=== PATIENT | female | born 1960 | race Caucasian/White ===

== ENCOUNTER 2024-10-19 09:32 | Emergency (ER) | payer OTHER ==
[~2024-10-19] VITALS: Ht 162.6 cm; Wt 60.3 kg
--- NOTE | 2024-10-19 10:28 | ED.PDOC ---
General HPI Comments 64-year-old female with a history of diabetes, liver cirrhosis and UTIs brought in by self complaining of left low back/flank pain for the past several months intermittently. Patient states she was recently seen at urgent care and on 10/06/2024 was treated with nitrofurantoin, which she finished. She had persistent symptoms, so revisited urgent care on 10/16, was told she still had the UTI, so was prescribed cephalexin, which she has been taking without improvement of her symptoms. She also reports nausea and dry heaving which has been relieved with Zofran. Today she states her blood glucose was in the 300s, which is not normal for her. She also reports decreased urine output and diffi culty with urination, but denies fever, hematuria or worsening edema. Chief Complaint: Back Pain Time Seen by MD: 10:10 Reviewed notes: Nurses Notes, Medications, Allergies Allergies: Coded Allergies: NO KNOWN ALLERGIES (Unverified , 10/19/24) Home Meds Active Scripts Levofloxacin Hemihydrate (LEVAQUIN 500 MG) 500 Mg Tab, 500 MG PO DAILY for 10 Days, #10 TAB Prov:RICK LOMAX MD 10/19/24 Information Source: Patient Mode of Arrival: Ambulatory Severity: Moderate Timing: Weeks Duration: Since onset Prehospital treatment: None Onset: Spontaneous Symptoms: None History of: UTI Location: (L)Flank (more towards the back) Modifying factors: None associated signs and symptoms: Back Pain Past Medical History PAST MEDICAL HISTORY: DM Past Medical History (Other): Cirrhosis Surgical History: Tonsillectomy Surgical History (Other): Laparoscopic surgery 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 History Family History Family History: Reviewed,noncontributory to illness, Unknown Social History Smoker: Non-Smoker Alcohol: Sober Drugs: Denies Drug Use Lives In: Home Constitutional: denies: chills, diaphoresis, fatigue, fever, malaise, sweats, weakness, others EENTM: denies: blurred vision, double vision, ear bleeding, ear discharge, ear drainage, ear pain, ear ringing, eye pain, eye redness, hearing loss, mouth pain, mouth swelling, nasal discharge, nose bleeding, nose congestion, nose pain, photophobia, tearing, throat pain, throat swelling, voice changes, others Respiratory: denies: cough, hemoptysis, orthopnea, SOB at rest, shortness of breath, SOB with excertion, stridor, wheezing, others Cardiovascular: denies: chest pain, dizzy spells, diaphoresis, Dyspnea on exertion, edema, irregular heart beat, left arm pain, lightheadedness, palpitations, PND, syncope, others Gastrointestinal: denies: abdomen distended, abdominal pain, blood streaked bowels, constipated, diarrhea, dysphagia, difficulty swallowing, hematemesis, melena, nausea, poor appetite, poor fluid intake, rectal bleeding, rectal pain, vomiting, others Genitourinary: reports: others (Currently has a UTI); denies: abnormal vagina bleeding, burning, dyspareunia, dysuria, flank pain, frequency, hematuria, incontinence, pain, , vagina discharge, urgency Neurological: denies: dizziness, fainting, headache, left sided numbness, left sided weakness, numbness, paresthesia, pre-existing deficit, right sided numbness, right sided weakness, seizure, speech problems, tingling, tremors, weakness, others Musculoskeletal: reports: back pain; denies: gout, joint pain, joint swelling, muscle pain, muscle stiffness, neck pain, others Integumetry: denies: bruises, change in color, change in hair/nails, dryness, laceration, lesions, lumps, rash, wounds, others Allergic/Immunocompromised: denies: Difficulty Healing, Frequent Infections, Hives, Itching, others Hematologic/Lymphatic: denies: anemia, blood clots, easy bleeding, easy bruising, swollen glands, others Endocrine: denies: excessive hunger, excessive sweating, excessive thirst, excessive urination, flushing, intolerance to cold, intolerance to heat, unexplained weight gain, unexplained weight loss, others Psychiatric: denies: anxiety, bipolar disorder, depression, hopeless, panic disorder, schizophrenia, sleepless, suicidal, others All Other Systems: Reviewed and Negative Physical Exam General Appearance: No Apparent Distress HEENT: Other (Unremarkable) Neck: Full Range of Motion, Normal Inspection Respiratory: Lungs Clear, No Accessory Muscle Use, No Respiratory Distress, Normal Breath Sounds Cardiovascular: No Edema, No JVD, Regular Rate/Rhythm Breast Exam: Deferred Gastrointestinal: Non Tender, Soft, Other (Localizes pain to the left low back and flank areas. No change in pain with palpation of these areas. No CVA tenderness.) Genitalia: Deferred Pelvic: Deferred Rectal: Deferred Extremities: Normal inspection, Normal range of motion, Non-tender, No pedal edema Neurologic: Alert (Oriented x4), Normal Affect, Normal Mood, Other (Ambulatory without difficulty, no gross focal deficit) Cerebellar Function: NOT DONE Reflexes: NOT DONE Skin: Dry, Normal Color, Warm Lymphatic: NOT DONE Was a procedure done? Was a procedure done?: No Differential Diagnosis Kidney stone (Female): Bowel obstruction, Pyelonephritis, Renal failure, Urolithiasis Kidney stone (Male): Renal infarction Penile/Scrotal: N/A Urinary Problem (Male): N/A Urinary Problem (Female): Urinary retention, Other (Abscess, mass lesion, musculoskeletal pain, neuropathic pain, among others) X-Ray, Labs, Meds, VS Vital Signs Date Time Temp Pulse Resp B/P (MAP) Pulse Ox O2 Delivery O2 Flow Rate FiO2 10/19/24 10:54 75 18 100 Room Air* 0 21 10/19/24 10:54 98.1 75 18 130/71 (90) 100 98.1 10/19/24 09:52 99.8 100 16 147/67 (93) 98 Lab Test 10/19/24 11:51 10/19/24 10:34 10/19/24 09:50 Range/Units POC Glucose 304 H 70-106 mg/dl White Blood Count 8.7 4.4-10.8 10^3/uL Red Blood Count 4.47 4.0-5.20 10^6/uL Hemoglobin 10.5 L 12.2-16.2 g/dL Hematocrit 33.0 L 36.0-46.0 % Mean Corpuscular Volume 73.8 L 80.0-100.0 fL Mean Corpuscular Hemoglobin 23.5 L 28.0-32.0 pg Mean Corpuscular Hemoglobin Concent 31.8 L 32.0-36.0 g/dL Red Cell Distribution Width 17.2 H 11.8-14.3 % Platelet Count 383 140-450 10^3/uL Mean Platelet Volume 8.4 6.9-10.8 fL Neutrophils (%) (Auto) 80.3 H 37.0-80.0 % Lymphocytes (%) (Auto) 10.2 10.0-50.0 % Monocytes (%) (Auto) 7.8 0.0-12.0 % Eosinophils (%) (Auto) 0.6 0.0-7.0 % Basophils (%) (Auto) 1.1 0.0-2.0 % Neutrophils # (Auto) 7.0 1.6-8.6 10 ^3/uL Lymphocytes # (Auto) 0.9 0.4-5.4 10 ^3/uL Monocytes # (Auto) 0.7 0-1.3 10 ^3/uL Eosinophils # (Auto) 0.1 0-0.8 10 ^3/uL Basophils # (Auto) 0.1 0-0.2 10 ^3/uL Nucleated Red Blood Cells 0.1 % Sodium Level 130 L 136-145 mmol/L Potassium Level 3.9 3.5-5.1 mmol/L Chloride Level 95 L 98-107 mmol/L Carbon Dioxide Level 27 20-31 mmol/L Anion Gap 8 5-15 Blood Urea Nitrogen 13 9-23 mg/dL Creatinine 1.53 H 0.550-1.02 mg/dL Glomerular Filtration Rate Calc 38 >90 mL/min BUN/Creatinine Ratio 8.5 L 10.0-20.0 Serum Glucose 315 H 74-106 mg/dL Lactic Acid Level 1.3 0.4-2.0 mmol/L Calcium Level 9.8 8.7-10.4 mg/dL Urine Color Light-yellow Yellow Urine Clarity Clear Clear Urine pH 5.5 5.0-9.0 Urine Specific [place] 1.009 1.001-1.035 Urine Protein Negative Negative Urine Ketones Negative Negative Urine Blood Negative Negative /uL Urine Nitrite Negative Negative Urine Bilirubin Negative Negative Urine Urobilinogen Normal Negative mg/dL Urine Leukocyte Esterase Negative Negative /uL Urine RBC <1 0 - 4 /hpf Urine WBC 1 0 - 5 /hpf Urine Squamous Epithelial Cells Few <5 /hpf Urine Bacteria None seen None Seen /hpf Urine Glucose 4+ H Normal mg/dL Current Medications Medications (Trade) Dose Ordered Sig/Teresita Route Start Time Stop Time Status Last Admin Sodium Chloride 1,000 ml @ 1,000 mls/hr Q1H ONCE IV 10/19/24 10:30 10/19/24 11:29 DC 10/19/24 10:50 Levofloxacin/ Dextrose 100 ml @ 100 mls/hr ONCE ONCE IV 10/19/24 10:30 10/19/24 11:29 DC 10/19/24 10:50 Insulin Human Regular (InsuLIN R) 4 units ONCE ONCE IV 10/19/24 11:45 10/19/24 11:46 DC 10/19/24 11:56 PROCEDURE(s): ABPL - CT AB PEL WO CON-NO ORAL OR IV REASON: L flank/low back pain, resistant uti ORDER NUMBER(s): [id number], ACCESSION NUMBER(s): [id number] CLINICAL INFORMATION: 64 years old, Female; left flank/low back pain, resistant urinary tract infection. TECHNIQUE: Axial CT images of the abdomen and pelvis were obtained without IV contrast. Coronal and sagittal reformatted images were obtained, reviewed, and stored. Evaluation of the parenchymal organs is limited without IV contrast. Evaluation of the bowel and mesentery is limited without oral contrast. All CT scans at this medical facility are performed using dose modulation techniques as appropriate to a performed exam including the following: Automated exposure control was utilized; adjustment of the MA and/or KV according to patient size; and use of iterative reconstruction technique. CTDIvol = 7.75 mGy DLP = 425.48 mGy-cm COMPARISON: None FINDINGS: Lung bases: Lung bases are clear. Liver: Grossly unremarkable in its noncontrast enhanced appearance. No abnormal density or focal lesion identified. Biliary: Multiple calcified gallstones in the gallbladder. Spleen: Unremarkable. Pancreas: Prominent pancreatic calcifications, likely sequelae of chronic pancreatitis. Adrenal glands: Unremarkable. No mass. Kidneys: No hydronephrosis. Punctate nonobstructing calculus in the lower pole of the left kidney. No obstructing calculi. Aorta/Vascular: Dense atherosclerotic calcification. No abdominal aortic aneurysm. Retroperitoneum: No mass or lymphadenopathy. Bowel/mesentery: No small bowel obstruction. No free air or free fluid. Appendix is visualized and appears unremarkable. Moderate stool in the colon. Pelvic organs: Uterus appears to be surgically absent. Bladder: Unremarkable. No mass. Abdominal wall: No mass or hernia. Bones: No acute fracture or suspicious intraosseous lesion. IMPRESSION: 1. No hydronephrosis. Punctate nonobstructing calculus in the lower pole of the left kidney. No obstructing calculi. 2. Cholelithiasis. 3. Sequelae of chronic pancreatitis as described above. 4. Moderate stool in the colon. 5. Additional nonacute findings as detailed above. X-Ray, Labs, Meds, VS Comment 64-year-old female with a history of diabetes, liver cirrhosis and current UTI complaining of persistent left flank pain and UTI symptoms despite taking nitrofurantoin and Keflex Remarkable for temperature 99.8, BP 164/[address] abdomen and pelvis IMPRESSION: 1. No hydronephrosis. Punctate nonobstructing calculus in the lower pole of the left kidney. No obstructing calculi. 2. Cholelithiasis. 3. Sequelae of chronic pancreatitis as described above. 4. Moderate stool in the colon. 5. Additional nonacute findings as detailed above. CBC, basic metabolic panel remarkable for hemoglobin 10.5, hematocrit 33, 80.3% neutrophils, sodium 130, chloride 95, creatinine 1.53, glucose 315 UA unremarkable except for 4+ glucose Patient treated with the following in the ED: 1 L 0.9 normal saline IV bolus, Levaquin 500 mg IV, regular insulin 4 units IV On re-evaluation, patient resting comfortably with stable vitals. Patient decli doreen pain medication, stating she was comfortable after taking naproxen at home. Case was discussed with Dr. Wilcox, who reviewed the patient's outpatient history and felt the patient could be managed as an outpatient. He felt that she has been adequately treated for her UTI, and recommended no additional antibiotics. He felt the patient may have pain due to degenerative disc disease, so will refer her to pain management. He also recommended Flomax for her urinary discomfort. Patient advised regarding workup findings, my impression, treatment plan and follow-up recommendations. She expressed understanding and agreed. Time of 1ST Reevaluation: 10:40 Reevaluation 1ST: Unchanged Time of 2ND Reevaluation: 13:33 Patient Education/Counseling: Diagnosis, Treatment, Prognosis Family Education/Counseling: No Family Present Additional Information - The following tests were ordered, and results were reviewed by me: Labs, CT, PHA - I reviewed and agreed with the following test results read by other provider: CT - I discussed treatments and results with medical personnel and: (consultants, family) Departure 1 Departure Time of Disposition: 11:44 Impression: Primary Impression: Nephrolithiasis Additional Impressions: Electrolyte imbalance Hyperglycemia Disposition: HOME / SELF CARE / HOMELESS Condition: Stable Additional Instructions: Your blood tests showed low sodium and chloride, high blood sugar and abnormal kidney function. Your urine test showed glucose, but was not consistent with an infection. Your CT results are below. 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 Continue Keflex (cephalexin) until finished. Continue naproxen as needed for pain. Continue ondansetron as needed for nausea/vomiting. [place] [id number] Ph: [phone] DIAGNOSTIC IMAGING Diagnostic Imaging Report : [id number] Signed PATIENT: TULIO ARELLANO ACCT: [id number] UNIT: [id number] : 1960 LOC: ER ROOM / BED: / AGE / SEX: 64 / F ADM STATUS: REG ER SERVICE 1023 ORDERING PHYSICIAN: RICK LOMAX MD PROCEDURE(s): ABPL - CT AB PEL WO CON-NO ORAL OR IV REASON: L flank/low back pain, resistant uti ORDER NUMBER(s): [id number], ACCESSION NUMBER(s): [id number] CLINICAL INFORMATION: 64 years old, Female; left flank/low back pain, resistant urinary tract infection. TECHNIQUE: Axial CT images of the abdomen and pelvis were obtained without IV contrast. Coronal and sagittal reformatted images were obtained, reviewed, and stored. Evaluation of the parenchymal organs is limited without IV contrast. Evaluation of the bowel and mesentery is limited without oral contrast. All CT scans at this medical facility are performed using dose modulation techniques as appropriate to a performed exam including the following: Automated exposure control was utilized; adjustment of the MA and/or KV according to patient size; and use of iterative reconstruction technique. CTDIvol = 7.75 mGy DLP = 425.48 mGy-cm COMPARISON: None FINDINGS: Lung bases: Lung bases are clear. Liver: Grossly unremarkable in its noncontrast enhanced appearance. No abnormal density or focal lesion identified. Biliary: Multiple calcified gallstones in the gallbladder. Spleen: Unremarkable. Pancreas: Prominent pancreatic calcifications, likely sequelae of chronic pancreatitis. Adrenal glands: Unremarkable. No mass. Kidneys: No hydronephrosis. Punctate nonobstructing calculus in the lower pole of the left kidney. No obstructing calculi. Aorta/Vascular: Dense atherosclerotic calcification. No abdominal aortic aneurysm. Retroperitoneum: No mass or lymphadenopathy. Bowel/mesentery: No small bowel obstruction. No free air or free fluid. Appendix is visualized and appears unremarkable. Moderate stool in the colon. Pelvic organs: Uterus appears to be surgically absent. Bladder: Unremarkable. No mass. Abdominal wall: No mass or hernia. Bones: No acute fracture or suspicious intraosseous lesion. IMPRESSION: 1. No hydronephrosis. Punctate nonobstructing calculus in the lower pole of the left kidney. No obstructing calculi. 2. Cholelithiasis. 3. Sequelae of chronic pancreatitis as described above. 4. Moderate stool in the colon. 5. Additional nonacute findings as detailed above. ATED BY: MANJIT NAZARIO DO DICTATED DATE/TIME: 10/19/24 1135 e-Prescriptions Tamsulosin Hcl (Flomax) 0.4 Mg Cap 1 CAP PO DAILY, #30 CAP 11 Refills Prov: RICK LOMAX MD 10/19/24 Discharged With: Self Critical Care Note Critical Care Time?: No Stability Stability form required: No Heart Score Heart Score: Heart Score Response (Comments) Value History N/A 0 EKG N/A 0 Age N/A 0 Risk Factors N/A 0 Troponin N/A 0 Total 0 I personally scribed for RICK LOMAX MD ([email or web address]) on 10/19/24 at 10:28. Electronically submitted by Rishi Bourgeois ([email or web address]). RICK LOMAX MD Oct 19, 2024 10:28
[2024-10-19 10:42] LABS: Basophils # (auto) 0.1 10 ^3/uL (0-0.2); Basophils % (auto) 1.1 % (0.0-2.0); Eosinophils # (auto) 0.1 10 ^3/uL (0-0.8); Eosinophils % (auto) 0.6 % (0.0-7.0); Hemoglobin 10.5 g/dL (12.2-16.2); Lymphocytes # (auto) 0.9 10 ^3/uL (0.4-5.4); Lymphocytes % (auto) 10.2 % (10.0-50.0); Mean Corpuscular Hemoglobin 23.5 pg (28.0-32.0); Mean Corpuscular Hgb Conc. 31.8 g/dL (32.0-36.0); Mean Corpuscular Volume 73.8 fL (80.0-100.0); Monocytes # (auto) 0.7 10 ^3/uL (0-1.3); Monocytes % (auto) 7.8 % (0.0-12.0); Neutrophils % (auto) 80.3 % (37.0-80.0); Nucleated Red Blood Cells % 0.1 %; Platelet Count (auto) 383 10^3/uL (140-450); Red Blood Cells 4.47 10^6/uL (4.0-5.20); Red Cell Distribution Width 17.2 % (11.8-14.3); White Blood Cell 8.7 10^3/uL (4.4-10.8)
[2024-10-19 10:48] LABS: Urine Bacteria None Seen /hpf (None Seen)
[2024-10-19] MEDS: levoFLOXacin 500MG 100 ML IV ONE (10:50)
[2024-10-19] MEDS: SODIUM CHLORIDE 0.9% 1,000 ML IV ONE (10:50)
[2024-10-19 10:52] LABS: Potassium 3.9 mmol/L (3.5-5.1)
[2024-10-19 10:53] LABS: Anion Gap 8 (5-15); Calcium 9.8 mg/dL (8.7-10.4); Carbon Dioxide 27 mmol/L (20-31); Chloride 95 mmol/L (98-107); Sodium 130 mmol/L (136-145)
[2024-10-19 10:54] VITALS: PULSE 75; RESP 18; O2SAT 100
[2024-10-19 10:58] LABS: BUN/Creatinine Ratio 8.5 (10.0-20.0); Blood Urea Nitrogen 13 mg/dL (9-23)
[2024-10-19 11:02] LABS: Urine Blood Negative /uL (Negative); Urine Clarity Clear (Clear); Urine Color Light-Yellow (Yellow); Urine Protein, UAD Negative (Negative); Urine Specific Gravity 1.009 (1.001-1.035); Urine Squamous Epithelial Cell FEW /hpf (<5); Urine Urobilinogen Normal (Negative); Urine WBC 1 /hpf (0 - 5); Urine pH 5.5 (5.0-9.0)
[2024-10-19 11:06] LABS: Glucose 315 mg/dL (74-106)
[2024-10-19] MEDS ORDERED: LEVO500T91 PO (11:34)
--- NOTE | 2024-10-19 11:37 | DVH ---
CLINICAL INFORMATION: 64 years old, Female; left flank/low back pain, resistant urinary tract infec tion. TECHNIQUE: Axial CT images of the abdomen and pelvis were obtained without IV contrast. Coronal and sagittal reformatted images were obtained, reviewed, and stored. Evaluation of the parenchymal organs is limited without IV contrast. Evaluation of the bowel and mesentery is limited without oral contra st. All CT scans at this medical facility are performed using dose modulation techniques as appropria te to a performed exam including the following: Automated exposure control was utilized; adjustment o f the MA and/or KV according to patient size; and use of iterative reconstruction technique. CTDIvol = 7.75 mGy DLP = 425.48 mGy-cm COMPARISON: None FINDINGS: Lung bases: Lung bases are clear. Liver: Grossly unremarkable in its noncontrast enhanced appearance. No abnormal density or focal les ion identified. Biliary: Multiple calcified gallstones in the gallbladder. Spleen: Unremarkable. Pancreas: Prominent pancreatic calcifications, likely sequelae of chronic pancreatitis. Adrenal glands: Unremarkable. No mass. Kidneys: No hydronephrosis. Punctate nonobstructing calculus in the lower pole of the left kidney. N o obstructing calculi. Aorta/Vascular: Dense atherosclerotic calcification. No abdominal aortic aneurysm. Retroperitoneum: No mass or lymphadenopathy. Bowel/mesentery: No small bowel obstruction. No free air or free fluid. Appendix is visualized and ap pears unremarkable. Moderate stool in the colon. Pelvic organs: Uterus appears to be surgically absent. Bladder: Unremarkable. No mass. Abdominal wall: No mass or hernia. Bones: No acute fracture or suspicious intraosseous lesion. IMPRESSION: 1. No hydronephrosis. Punctate nonobstructing calculus in the lower pole of the left kidney. No obst ructing calculi. 2. Cholelithiasis. 3. Sequelae of chronic pancreatitis as described above. 4. Moderate stool in the colon. 5. Additional nonacute findings as detailed above.
[2024-10-19] MEDS: InsuLIN REG 1unit/0.01ml Soln (100units/ml) IV ONE (11:56)
[2024-10-19] MEDS ORDERED: TAMS-35 PO (13:36)
[2024-10-19 14:38] VITALS: BP 110/83; PULSE 89; RESP 18; TEMP 98.3; O2SAT 100
== END 2024-10-19 14:53 | disposition home or self-care (01) ==
LOC: ER 09:32
DX: N20.0 Calculus of kidney (principal); E87.8 Other disorders of electrolyte and fluid balance, not elsewhere classified; E11.65 Type 2 diabetes mellitus with hyperglycemia; Z98.890 Other specified postprocedural states
CPT/HCPCS: 36415; 74176; 80048; 81001; 82962; 83605; 85025; 96365; 96375; 99285; J1815; J1956; J7030; 96374